=== PATIENT | male | born 1980 | race African-American/Black ===

== ENCOUNTER 2016-07-16 00:14 | Emergency (ER) | payer SELFPAY ==
[2016-07-16] MEDS ORDERED: CLINDAMYCIN HCL 150 MG CAPSULE PO ONE (03:17)
--- NOTE | 2016-07-16 03:23 | ER Document Report ---
ED General - General Chief Complaint: Toothache Stated Complaint: POSSIBLE ABSCESS Notes: Patient is a 36-year-old male presents with complaint of possible dental infection. Patient says started as some swelling to the left upper part of his face. He has known dental caries duration of his left upper incisor. He has appointment with the dentist and one half weeks to have this tooth removed. Denies any fevers. No difficulty breathing. Swelling is only to the upper face. No other complaints at this time. TRAVEL OUTSIDE OF THE [place] IN LAST 30 DAYS: No - Related Data Allergies/Adverse Reactions: No Known Allergies Allergy (Verified 12/29/14 09:37) Past Medical History - Social History Smoking Status: Current Every Day Smoker Chew tobacco use (# tins/day): No Frequency of alcohol use: Rare Drug Abuse: Marijuana Family History: CAD, Hypertension, Malignancy Patient has suicidal ideation: No Patient has homicidal ideation: No - Past Medical History Cardiac Medical History: Reports: Hx Hypertension - possible Renal/ Medical History: Denies: Hx Peritoneal Dialysis Musculoskeltal Medical History: Reports Hx Musculoskeletal Trauma Psychiatric Medical History: Reports: Hx Bipolar Disorder, Hx Depression Surgical Hx: Negative - Immunizations Immunizations up to date: No Hx Diphtheria, Pertussis, Tetanus Vaccination: No Review of Systems - Review of Systems Notes: My Normal Review Basic REVIEW OF SYSTEMS: CONSTITUTIONAL : Denies fever, chills, or sweats. Denies recent illness. EENT: Vision swelling. Dental pain. RESPIRATORY: Denies cough, cold, or chest congestion. Denies shortness of breath, difficulty breathing, or wheezing. GASTROINTESTINAL: Denies abdominal pain. Denies nausea, vomiting, or diarrhea. Denies constipation. Last BM: MUSCULOSKELETAL: Denies neck or back pain or joint pain or swelling. SKIN: Denies rash or skin lesions. NEUROLOGICAL: Denies altered mental status or loss of consciousness. ALL OTHER SYSTEMS REVIEWED AND NEGATIVE. Physical Exam - Vital signs Vitals: Temp Pulse Resp BP Pulse Ox 98.2 F 67 18 160/98 H 99 07/16/16 00:44 07/16/16 00:44 07/16/16 00:44 07/16/16 00:44 07/16/16 00:44 - Notes Notes: General Appearance: Well nourished, alert, cooperative, no acute distress, no obvious discomfort. Well-appearing Vitals: reviewed, See vital signs table. Head: no swelling or tenderness to the head some obvious swelling over the left maxillary area., EOMI, Conjuctiva clear Mouth: Patient has very eroded left upper canine which most likely his source of swelling in his face. No gingival abscess. Throat: No tonsillar inflammation, No airway obstruction, No lymphadenopathy Neck: Supple, no neck tenderness, No thyromegaly Lungs: No wheezing, No rales, No rhonci, No accessory muscle use, good air exchange bilaterally. Heart: Normal rate, Regular rythm, No murmur, no rub Abdomen: Normal BS, soft, No rigidity, No abdominal tenderness, No guarding, no rebound, no abdominal masses, no organomegaly Extremities: strength 5/5 in all extremities, good pulses in all extremities, no swelling or tenderness in the extremities, no edema. Skin: warm, dry, appropriate color, no rash Neuro: speech clear, oriented x 3, normal affect, responds appropriately to questions. Course - Vital Signs Vital signs: Temp Pulse Resp BP Pulse Ox 98.2 F 67 18 160/98 H 99 07/16/16 00:44 07/16/16 00:44 07/16/16 00:44 07/16/16 00:44 07/16/16 00:44 - Transfer of Care Notes: 07/16/16 03:21 Patient has some facial swelling over the left upper face related to dental infection. We'll place him on clindamycin. I encouraged him to call his dentist on Monday morning to see if they can move up his appointment closer. I encourage him to return to ER immediately if has any difficulty breathing, difficulty swallowing, or swelling that starts extend near the mandible. Patient agrees with plan and will be discharged home. Dictation of this chart was performed using voice recognition software; therefore, there may be some unintended grammatical errors. Discharge - Discharge Clinical Impression: Tooth pain, Facial swelling Condition: Good Disposition: HOME, SELF-CARE Instructions: Clindamycin ([facility]) Additional Instructions: Toothache Your pain is due to dental decay. The tooth must be repaired in order for you to feel better. Severe swelling or drainage around a tooth usually means a deep dental abscess. This also requires evaluation and treatment by the dentist, but antibiotics may be prescribed while awaiting dental treatment. You should be rechecked immediately if you develop major swelling of the face, increasing pain, difficulty breathing, difficulty swallowing, swelling that extends below the jaw, or fever. Prescriptions: Clindamycin HCl 300 mg PO ASDIR #56 capsule
[2016-07-16 03:45] VITALS: BP 160/104
== END 2016-07-16 03:43 | disposition home or self-care (01) ==
LOC: ER 00:14
DX: K08.89 Other specified disorders of teeth and supporting structures (principal); R22.0 Localized swelling, mass and lump, head; F17.210 Nicotine dependence, cigarettes, uncomplicated
CPT/HCPCS: 99282

== ENCOUNTER 2018-12-09 22:43 | Emergency (ER) | payer OTHER ==
[2018-12-10] MEDS ORDERED: CEPHALEXIN 500 MG CAPSULE PO ONE (00:53)
[2018-12-10 00:59] VITALS: BP 148/80
--- NOTE | 2018-12-10 01:01 | ER Document Report ---
HPI - HPI Time Seen by Provider: 12/10/18 00:52 Pain Level: 4 Context: Patient is a 38-year-old male with a history of hypertension who presents to the emergency department with chief complaint of an insect bite to his upper abdomen. Patient states last Monday he was at work, as he is a senior telecommunications specialist, when he felt something bite him underneath his shirt. Patient states initially the bite blossom came to ahead like a pimple. Patient states he has been using peroxide over the area. Patient states it gradually started to become larger. Patient denies drainage from the site. Patient denies fever or chills. Patient denies body aches. Patient states he has not taken anything for his pain. - GASTROINTESTINAL Gastrointestinal: DENIES: Abdominal Pain - REPRODUCTIVE Reproductive: DENIES: : Past Medical History - General Information source: Patient - Social History Smoking Status: Current Every Day Smoker Cigarette use (# per day): Yes Frequency of alcohol use: Occasional Drug Abuse: Marijuana Lives with: Family Family History: CAD, Hypertension, Malignancy Patient has suicidal ideation: No Patient has homicidal ideation: No - Past Medical History Cardiac Medical History: Reports: Hx Hypertension - possible Pulmonary Medical History: Reports: None EENT Medical History: Reports: None Neurological Medical History: Reports: None Endocrine Medical History: Reports: None Renal/ Medical History: Reports: None. Denies: Hx Peritoneal Dialysis Malignancy Medical History: Reports None GI Medical History: Reports: None Musculoskeletal Medical History: Reports Hx Musculoskeletal Trauma Skin Medical History: Reports None Psychiatric Medical History: Reports: Hx Bipolar Disorder, Hx Depression Traumatic Medical History: Reports: None Infectious Medical History: Reports: None Surgical Hx: Negative - Immunizations Immunizations up to date: No Hx Diphtheria, Pertussis, Tetanus Vaccination: No Vertical Provider Document - CONSTITUTIONAL Agree With Documented VS: Yes Exam Limitations: No Limitations General Appearance: No Apparent Distress - INFECTION CONTROL TRAVEL OUTSIDE OF THE [place] IN LAST 30 DAYS: No - HEENT HEENT: Atraumatic, Normocephalic - NECK Neck: Normal Inspection - RESPIRATORY Respiratory: Breath Sounds Normal, No Respiratory Distress - CARDIOVASCULAR Cardiovascular: Regular Rate, Regular Rhythm - GI/ABDOMEN Gastrointestinal: Abdomen Soft, Abdomen Non-Tender - NEURO Level of Consciousness: Awake, Alert, Appropriate - DERM Integumentary: Warm, Dry Adult Front & Back Diagram: 1 - 2cm x 1 cm area of erythema with a crusted perimeter. No drainage. No fluctuance. No surrounding cellulitis. Course - Re-evaluation Re-evalutation: 12/10/18 01:04 Upon initial assessment patient is nontoxic-appearing in no acute distress. Patient does have a 2 x 1 cm circular area of erythema with no center. There is no surrounding cellulitis. There is no drainage. Patient no acute distress. I will place the patient on oral antibiotics with strict return precautions. Patient verbalized understanding and is. - Vital Signs Vital signs: Temp Pulse Resp BP Pulse Ox 97.7 F 70 18 162/82 H 97 12/09/18 22:59 12/09/18 22:59 12/09/18 22:59 12/09/18 22:59 12/09/18 22:59 Discharge - Discharge Clinical Impression: Insect bite Qualifiers: Encounter type: initial encounter Site of insect bite: abdominal wall Qualified Code(s): S30.861A - Insect bite (nonvenomous) of abdominal wall, initial encounter; W57.XXXA - Bitten or stung by nonvenomous insect and other nonvenomous arthropods, initial encounter Hypertension Qualifiers: Hypertension type: essential hypertension Qualified Code(s): I10 - Essential (primary) hypertension Condition: Stable Disposition: HOME, SELF-CARE Additional Instructions: Today you were seen in the emergency department for a possible insect bite. Although it is unsure what type of insect bit you we essentially treated all the same. The area does look slightly infected and red. I will place you on an antibiotic called Keflex. Keflex covers staph bacteria. Please take this for its full completed course. Please return the emergency department if the redness increases, you develop fever, chills, red streaking up or down the abdomen, if the redness becomes enlarged like an abscess or if you have any other concerning signs or symptoms. Please keep the area clean and dry as possible. Insect Bites You have been bitten by an insect. These bites can cause two types of swelling: an initial swelling due to insect saliva or injected poison, and a late reaction due to your body's allergic reaction. This initial local reaction may be uncomfortable but is not dangerous. Often there's an itchy "hive" at the bite location. This is treated with antihistamines, cold compresses, and resting the affected body part. The later reaction often develops about the second day. The entire area becomes very swollen, red, itchy, and tender. This is an allergic reaction. Your body is attacking the leftover insect saliva or venom. This type of allergy is unpleasant, but not dangerous. We treat this swelling with cortisone-type medicine. Sometimes we use antibiotics if we're worried about infection. Antihistamines help with the itch. If you develop a fever, chills, a red streak, or swollen glands in the area of the bite, infection may be starting. Return at once. Prescriptions: Cephalexin Monohydrate [Keflex 500 mg Capsule] 500 mg PO QID 7 Days capsule Forms: Return to Work
== END 2018-12-10 00:59 | disposition home or self-care (01) ==
LOC: ER 22:43
DX: S30.861A Insect bite (nonvenomous) of abdominal wall, initial encounter (principal); W57.XXXA Bitten or stung by nonvenomous insect and other nonvenomous arthropods, initial encounter; Y99.0 Civilian activity done for income or pay; I10 Essential (primary) hypertension; F17.210 Nicotine dependence, cigarettes, uncomplicated; F12.10 Cannabis abuse, uncomplicated
CPT/HCPCS: 99282

== ENCOUNTER 2019-10-06 02:47 | Emergency (ER) | payer SELFPAY ==
--- NOTE | 2019-10-06 03:32 | RADIOLOGY REPORT (SQ) ---
EXAM DESCRIPTION: [facility]: XR CHEST 2 VIEWS Views: 2 CLINICAL HISTORY: 39 years Male; PALPITATIONS; COMPARISON: 12/29/2014 FINDINGS: Lungs: Lungs are clear, with no focal infiltrate, pneumothorax, or pleural effusion. Mediastinum: Mediastinum is within normal limits for this positioning. Bones: Bony structures are unremarkable. IMPRESSION: 1. No acute cardiothoracic abnormality.
[2019-10-06 04:22] LABS: ABSOLUTE MONOCYTES (AUTO) 1.3 10^3/uL (0.1-1.4); ABSOLUTE NEUT (AUTO) 10.9 10^3/uL (1.7-8.2); BASOPHILS % (AUTO) 0.3 % (0-2); EOSINOPHILS % (AUTO) 0.1 % (0-6); HEMATOCRIT 44.6 % (37.9-51.0); HEMOGLOBIN 15.5 g/dL (13.5-17.0); LYMPHOCYTES % (AUTO) 13.7 % (13-45); MEAN CORPUSCULAR HEMOGLOBIN 31.6 pg (27.0-33.4); MEAN CORPUSCULAR HGB CONC 34.7 g/dL (32.0-36.0); MEAN CORPUSCULAR VOLUME 91 fl (80-97); PLATELET COUNT 253 10^3/uL (150-450); RED CELL DISTRIBUTION WIDTH 13.2 % (11.5-14.0); SEGMENTED NEUTROPHILS % (AUTO) 76.9 % (42-78); TOTAL CELLS COUNTED % (AUTO) 100 %; WHITE BLOOD COUNT 14.2 10^3/uL (4.0-10.5)
[2019-10-06 04:36] LABS: ALBUMIN 4.4 g/dL (3.5-5.0); ALKALINE PHOSPHATASE 46 U/L (38-126); ANION GAP 8 (5-19); ASPARTATE AMINO TRANSFERASE 54 U/L (17-59); BILIRUBIN,TOTAL 0.7 mg/dL (0.2-1.3); BLOOD UREA NITROGEN 13 mg/dL (7-20); CALCIUM 9.5 mg/dL (8.4-10.2); CARBON DIOXIDE 26 mmol/L (22-30); CHLORIDE 103 mmol/L (98-107); CREATINE KINASE 1549 U/L (55-170); GLUCOSE 105 mg/dL (75-110); POTASSIUM 4.2 mmol/L (3.6-5.0); TOTAL PROTEIN 7.6 g/dL (6.3-8.2)
[2019-10-06] MEDS ORDERED: NORMAL SALINE 1000 ML 1,000 ML IV ONE (04:44)
[2019-10-06 04:48] LABS: TROPONIN I < 0.012 ng/mL
--- NOTE | 2019-10-06 04:49 | ER Document Report ---
ED General - General Chief Complaint: Palpitations Stated Complaint: PALPITATIONS Time Seen by Provider: 10/06/19 04:26 Notes: CHIEF COMPLAINT: Palpitations HPI: 39-year-old male presenting for heart racing sensation which lasted for approximately an hour today. No chest pain or shortness of breath. States he is had something happen like this in the past but never had it evaluated. Denies current symptoms. ROS: See HPI - all other systems were reviewed and are otherwise negative Constitutional: no fever Eyes: no drainage, no blurred vision ENT: no runny nose, no sore throat Cardiovascular: no chest pain, positive heart racing sensation Resp: no SOB, no cough GI: no vomiting, no diarrhea, no abdominal pain : no dysuria Integumentary: no rash Allergy: no hives Musculoskeletal: no extremity pain or swelling Neurological: no numbness/tingling, no weakness MEDICATIONS: I agree with the patient medications as charted by the RN. ALLERGIES: I agree with the allergies as charted by the RN. PAST MEDICAL HISTORY/PAST SURGICAL HISTORY: Reviewed and agree as charted by RN. SOCIAL HISTORY: Reviewed and agree as charted by RN. FAMILY HISTORY: No significant familial comorbid conditions directly related to patient complaint EXAM: Reviewed vital signs as charted by RN. CONSTITUTIONAL: Alert and oriented and responds appropriately to questions. Well-appearing; well-nourished HEAD: Normocephalic; atraumatic EYES: PERRL; Conjunctivae clear, sclerae non-icteric ENT: normal nose; no rhinorrhea; moist mucous membranes; pharynx without lesions noted, no uvula edema or deviation, no tonsillar hypertrophy, phonation normal NECK: Supple without meningismus; non-tender; no cervical lymphadenopathy, no masses CARD: RRR; no murmurs, no clicks, no rubs, no gallops; symmetric distal pulses RESP: Normal chest excursion without splinting or tachypnea; breath sounds clear and equal bilaterally; no wheezes, no rhonchi, no rales, pulse oximetry 99% on room air not hypoxic ABD/GI: Normal bowel sounds; non-distended; soft, non-tender, no rebound, no guarding; no palpable organomegaly or masses. BACK: The back appears normal and is non-tender to palpation, there is no CVA tenderness EXT: Normal ROM in all joints; non-tender to palpation; no cyanosis, no effusions, no edema SKIN: Normal color for age and race; warm; dry; good turgor; no acute lesions noted NEURO: Moves all extremities equally; Motor and sensory function intact PSYCH: The patient's mood and manner are appropriate. Grooming and personal hygiene are appropriate. MDM: 39-year-old male presenting for evaluation of heart racing sensation tonight. Currently asymptomatic. Appears to be in a normal sinus rhythm on the monitor. Awaiting cardiac labs including TSH. Will obtain 1 set of cardiac markers, he is having no chest pain shortness of breath to suggest ACS. TRAVEL OUTSIDE OF THE [place] IN LAST 30 DAYS: No - Related Data Allergies/Adverse Reactions: No Known Allergies Allergy (Verified 12/10/18 00:50) Past Medical History - Social History Smoking Status: Current Every Day Smoker Family History: CAD, Hypertension, Malignancy Patient has homicidal ideation: No - Past Medical History Cardiac Medical History: Reports: Hx Hypertension - possible Renal/ Medical History: Denies: Hx Peritoneal Dialysis Musculoskeletal Medical History: Reports Hx Musculoskeletal Trauma Psychiatric Medical History: Reports: Hx Bipolar Disorder, Hx Depression - Immunizations Immunizations up to date: No Hx Diphtheria, Pertussis, Tetanus Vaccination: No Physical Exam - Vital signs Vitals: Temp Pulse Resp BP Pulse Ox 98.5 F 99 18 151/83 H 96 10/06/19 02:51 10/06/19 02:51 10/06/19 02:51 10/06/19 02:51 10/06/19 02:51 Course - Re-evaluation Re-evalutation: 10/06/19 05:27 Lab work shows mild rhabdomyolysis with an elevated CK but creatinine is normal. Have aggressively hydrated the patient. He is tolerating oral fluids. Will e ncourage him to continue to hydrate at home. TSH is normal. Will refer patient to cardiology for outpatient evaluation - Vital Signs Vital signs: Temp Pulse Resp BP Pulse Ox 98.5 F 99 15 125/82 98 10/06/19 02:54 10/06/19 02:51 10/06/19 05:01 10/06/19 05:01 10/06/19 05:01 - Laboratory Result Diagrams: 10/06/19 04:02 10/06/19 04:02 Laboratory results interpreted by me: 10/06/19 10/06/19 10/06/19 04:02 04:02 04:02 WBC 14.2 H Absolute Neuts (auto) 10.9 H Sodium 136.8 L Creatine Kinase 1549 H CK-MB (CK-2) 19.20 H Discharge - Discharge Clinical Impression: Palpitations Rhabdomyolysis Qualifiers: Rhabdomyolysis type: non-traumatic Qualified Code(s): M62.82 - Rhabdomyolysis Condition: Stable Disposition: HOME, SELF-CARE Additional Instructions: Hydrate well at home. Your lab work suggests some dehydration. Follow-up closely with cardiology for further evaluation of the racing heart beat sensatio n that you had tonight. If you have recurrent symptoms return to the emergency department for reevaluation Referrals: NICO LYLES MD [ACTIVE STAFF] - Follow up as needed
[2019-10-06 05:12] VITALS: BP 125/82
--- NOTE | 2019-10-06 09:17 | EKG REPORT ---
SEVERITY:- ABNORMAL ECG - SINUS RHYTHM INCOMPLETE RBBB AND LAFB : Confirmed by: Deshaun Nash MD 06-Oct-2019 09:16:58
== END 2019-10-06 05:37 | disposition home or self-care (01) ==
LOC: ER 02:47
DX: M62.82 Rhabdomyolysis (principal); R00.2 Palpitations; F17.200 Nicotine dependence, unspecified, uncomplicated; I10 Essential (primary) hypertension
CPT/HCPCS: 93005; 99285; 96360; 36415; 82553; 82550; 84443; 85025; 80053; 84484; 71046; 93010; J7030

== ENCOUNTER 2020-04-28 02:01 | Emergency (ER) | payer SELFPAY ==
[2020-04-28] MEDS ORDERED: DEXAMETHASONE SOD PHOS INJ 10 MG/1 ML VIAL IM ONE (04:34)
[2020-04-28] MEDS ORDERED: KETOROLAC TROMETHAMINE 60 MG/2 ML SDV IM ONE (04:34)
--- NOTE | 2020-04-28 04:34 | ER Document Report ---
HPI - HPI Time Seen by Provider: 04/28/20 03:21 Pain Level: 2 Context: Patient is a 40-year-old male who presents emergency department with a chief complaint of left hip pain. Patient reports that the pain starts in his left hip area and radiates down his left leg. Patient reports that he has had this pain before. Denies any saddle paresthesias, loss of bladder or bowel function, history of IV drug use, or history of cancer. - CONSTITUTIONAL Constitutional: DENIES: Fever, Chills - EENT EENT: DENIES: Sore Throat, Ear Pain, Eye problems - NEURO Neurology: DENIES: Headache, Weakness, Vision blurred, Dizzinesss / Vertigo - CARDIOVASCULAR Cardiovascular: DENIES: Chest pain - RESPIRATORY Respiratory: DENIES: Trouble Breathing, Coughing - GASTROINTESTINAL Gastrointestinal: DENIES: Abdominal Pain, Black / Bloody Stools - REPRODUCTIVE Reproductive: DENIES: : - MUSCULOSKELETAL Musculoskeletal: DENIES: Extremity pain Past Medical History - General Information source: Patient - Social History Smoking Status: Current Every Day Smoker Family History: CAD, Hypertension, Malignancy - Past Medical History Cardiac Medical History: Reports: Hx Hypertension - possible Renal/ Medical History: Denies: Hx Peritoneal Dialysis Musculoskeletal Medical History: Reports Hx Musculoskeletal Trauma Psychiatric Medical History: Reports: Hx Bipolar Disorder, Hx Depression - Immunizations Immunizations up to date: No Hx Diphtheria, Pertussis, Tetanus Vaccination: No Vertical Provider Document - CONSTITUTIONAL Agree With Documented VS: Yes Exam Limitations: No Limitations General Appearance: No Apparent Distress - INFECTION CONTROL TRAVEL OUTSIDE OF THE [place] IN LAST 30 DAYS: No - HEENT HEENT: Atraumatic, Normocephalic, PERRLA - NECK Neck: Normal Inspection - RESPIRATORY Respiratory: No Respiratory Distress - CARDIOVASCULAR Cardiovascular: Regular Rate, Regular Rhythm Pulses: Normal: Radial - MUSCULOSKELETAL/EXTREMETIES Musculoskeletal/Extremeties: FROM, Tender - Left posterior hip, No Edema - NEURO Level of Consciousness: Awake, Alert, Appropriate - DERM Integumentary: Warm, Dry, No Rash Course - Re-evaluation Re-evalutation: 04/28/20 04:32 Differential diagnosis for back pain includes muscle spasm, muscle strain, slipped disc cauda equina syndrome, vertebral fracture, vertebral tumor, epidural abscess, pyelonephritis, or AAA. Based on history and exam, the most likely etiology of the patient's back pain is sciatic nerve pain. Emergent MRI is not indicated at this time because the patient does not have new weakness, or cauda equina syndrome. Patient does not have bladder or bowel dysfunction. Patient does not have history of IV drug use, therefore, I do not suspect an epidural abscess. Patient does not have recent weight loss or night sweats, and does not have a known history of cancer. - Vital Signs Vital signs: Temp Pulse Resp BP Pulse Ox 98.4 F 83 17 164/106 H 100 04/28/20 02:02 04/28/20 02:02 04/28/20 02:02 04/28/20 02:02 04/28/20 02:02 - Laboratory Results Critical Laboratory Results Reviewed: No Critical Results - Radiology Results Critical Radiology Results Reviewed: No Critical Results Discharge - Discharge Clinical Impression: Left hip pain Condition: Stable Disposition: HOME, SELF-CARE Additional Instructions: You were seen today in the emergency department for left hip pain. Your hip pain is related to sciatic nerve pain. Use the foam roller as we discussed. Stop taking the Aleve. You can take Tylenol/acetaminophen 1000 mg every 6 hours. Take the Flexeril as needed. Follow-up with one of the clinics below. Prescriptions: Cyclobenzaprine HCl [Flexeril 10 mg Tablet] 10 mg PO TIDP PRN #15 tab PRN Reason: Referrals: [facility] [Provider Group] - Follow up as needed [facility] [Provider Group] - Follow up as needed
[2020-04-28 05:56] VITALS: BP 151/93
== END 2020-04-28 05:56 | disposition home or self-care (01) ==
LOC: ER 02:01
DX: M25.552 Pain in left hip (principal); M54.9 Dorsalgia, unspecified; F17.200 Nicotine dependence, unspecified, uncomplicated
CPT/HCPCS: 99284; 96372; J1885; J1100